=== PATIENT | female | born 1985 | race Caucasian/White ===

== ENCOUNTER → 2017-08-08 17:25 | Outpatient (REF) | payer BC, SELFPAY ==
[2017-08-08 18:11] LABS: Basophils # 0.1 K/mm3 (0-0.2); Basophils % 0.9 % (0.1-2.0); Eosinophils # 0.2 K/mm3 (0.0-0.4); Eosinophils % 3.2 % (0.1-12.0); Hematocrit 43.1 % (37.0-47.0); Hemoglobin 14.4 g/dL (12.2-16.2); Lymphocytes # 2.3 K/mm3 (0.7-4.5); Lymphocytes % 32.7 K/mm3 (10-50); Mean Corpuscular HGB Conc 33.5 g/dL (31.8-35.4); Mean Corpuscular Volume 95.4 fl (81-99); Mean Platelet Volume 8.1 fl (7.4-10.4); Monocytes # 0.3 K/mm3 (0.1-1.0); Monocytes % 3.6 % (1.7-9.3); Neutrophils # 4.2 K/mm3 (1.8-7.8); Neutrophils % 59.5 % (37.0-80.0); Platelet Count 268 K/mm3 (142-424); Red Blood Count 4.52 M/mm3 (4.20-5.40); Red Cell Distribution Width 12.3 % (11.5-17.5)
[2017-08-08 18:44] LABS: Alanine Aminotransferase 12 U/L (12-78); Albumin Level 3.7 gm/dL (3.4-5.0); Albumin/Globulin Ratio 1.1 (1.1-1.8); Alkaline Phosphatase 71 U/L (46-116); Anion Gap 12.6 mEq/L (5-15); Aspartate Amino Transferase 13 U/L (15-37); Bilirubin,Total 0.2 mg/dL (0.2-1.0); Blood Urea Nitrogen 10 mg/dL (7-18); Calcium 8.6 mg/dL (8.5-10.1); Carbon Dioxide 28 mmol/L (21.0-32.0); Chloride 104 mmol/L (98-107); Chol/HDL Ratio 5.2 (1-3.5); Cholesterol 193 mg/dL (140-200); Creatinine,Serum 0.86 mg/dL (0.55-1.02); Estimated Glomerular Filt Rate 76 ml/min (>60); GFR (African American) 92 ML/MIN (>60); Globulin 3.4 gm/dl (1.3-3.2); Glucose 112 mg/dL (74-106); HDL Cholesterol 37 mg/dL (29-89); LDL Cholesterol 139 mg/dL (0-130); Potassium 3.6 mmoL/L (3.5-5.1); Sodium 141 mmol/L (136-145); T4 (Thyroxine) 9.8 ug/dl (4.7-13.3); Thyroid Stimulating Hormone 1.56 uIU/ml (0.358-3.740); Total Protein,Serum 7.1 gm/dL (6.4-8.2); Triglycerides 85 mg/dL (30-200); VLDL Cholesterol 17 mg/dL (0-40)
[2017-08-10 06:42] LABS: Iron 64 ug/dL (27-159); UIBC 250 ug/dL (131-425)
[2017-08-10 08:11] LABS: Folate 11.4 ng/mL (>3.0)
[2017-08-11 06:10] LABS: Iron Saturation 20 % (15-55); Vitamin B12 418 pg/mL (232-1245); Vitamin D 25 Hydroxy 38.6 ng/mL (30.0-100.0)
== END ==
LOC: LAB 17:25
PROVIDERS: Visit Provider Physician Assistant
DX: R51 Headache (principal)
CPT/HCPCS: 80053; 80061; 82607; 82652; 82746; 83550; 84436; 84443; 85025

== ENCOUNTER → 2017-08-15 07:48 | Outpatient (CLI) | payer BC, SELFPAY ==
--- NOTE | 2017-08-15 07:51 | CT_ITS ---
CT head/brain wo con Ordering Physician: LAURA Dunlap Patient Age: 32 years: Female HISTORY: ITS.REASON: right sided h/a, f/h brain CA Headache for 3 weeks TECHNIQUE: Routine CT axial head CT without contrast. Brain and bone windows performed and reviewed. All CT scans at this facility used one or more dose reduction techniques , viz: automatic exposure control, ma/Kv adjustment per patient's size, (including targeted exam where dose matched to the indication; i.e. head); or iterative reconstruction technique COMPARISON :None FINDINGS The brain appears within normal limits with no acute intercranial findings. No hemorrhage. No mass lesion or mass effect.. No subdural collection . Posterior fossa appears satisfactory. Flor-white matter interfaces satisfactory. Ventricles and basal cisterns satisfactory. The skull intact. The visualized incompletely imaged paranasal sinuses are clear. Mastoid air cells middle air and IACs unremarkable IMPRESSION No acute intracranial findings. Brain within normal limits. Visualized paranasal sinuses unremarkable.
== END ==
LOC: RAD 07:49
PROVIDERS: Family Provider Physician Assistant; PCP Physician Assistant; Visit Provider Physician Assistant
DX: R51 Headache (principal)
CPT/HCPCS: 70450

== ENCOUNTER → 2017-12-22 10:51 | Outpatient (CLI) | payer BC, SELFPAY ==
--- NOTE | 2017-12-22 10:53 | US_ITS ---
US transvaginal HISTORY: Pelvic pain, evaluate for ovarian cyst, cystic lesion seen on CT ITS.REASON: US T/V- Pelvic pain Ovarian Cyst ruleout ORDERING PHYSICIAN: Aman Brownlee MD PATIENT AGE: 32 years Comparison: none FINDINGS: The uterus is 9 x 5 x 6 cm with a combined endometrial thickness of 7 mm. scar noted anteriorly. There is a small amount fluid within the endometrial canal which is not included in calculation of the overall thickness of the endometrium.. No uterine mass evident. The left ovary is 2.9 x 2.7 x 3 cm and contains multiple small follicles. Blood flow is present. The right ovary is 4 x 3 x 3 cm and contains multiple small follicles. There is trace fluid in the cul-de-sac. IMPRESSION: 1. Small amount fluid in the endometrial canal. No endometrial thickening. 2. Polycystic appearance of the ovaries with no dominant cyst evident. 3. Trace fluid in the cul-de-sac
== END ==
PROVIDERS: Family Provider Physician Assistant; PCP Physician Assistant; Visit Provider Nurse Practitioner Obstetrics & Gynecology
DX: R10.2 Pelvic and perineal pain (principal); N83.209 Unspecified ovarian cyst, unspecified side
CPT/HCPCS: 76830

== ENCOUNTER → 2018-06-30 09:21 | Outpatient (POV) | payer BC, SELFPAY | PROVIDERS: Visit Provider Dermatology | DX: Z00.00 Encounter for general adult medical examination without abnormal findings (principal) ==

== ENCOUNTER → 2018-09-21 10:25 | Outpatient (CLI) | payer BC, SELFPAY | PROVIDERS: Visit Provider Physician Assistant | DX: R10.2 Pelvic and perineal pain (principal) | CPT/HCPCS: 87086; 87210 ==

== ENCOUNTER → 2018-09-28 14:49 | Outpatient (CLI) | payer BC, SELFPAY ==
[2018-09-28 16:40] VITALS: BMI 29.2
== END ==
PROVIDERS: PCP Physician Assistant; Visit Provider Physician Assistant
DX: Z71.3 Dietary counseling and surveillance (principal); E66.3 Overweight
CPT/HCPCS: 97802

== ENCOUNTER → 2019-12-22 16:18 | Outpatient (CLI) | payer BC, SELFPAY ==
[2019-12-22 16:50] LABS: Basophils # 0.1 K/mm3 (0-0.2); Basophils % 0.7 % (0.1-2.0); Eosinophils # 0.2 K/mm3 (0.0-0.4); Eosinophils % 2.3 % (0.1-12.0); Hematocrit 41.9 % (37.0-47.0); Hemoglobin 14.6 g/dL (12.2-16.2); Lymphocytes # 2.2 K/mm3 (0.7-4.5); Lymphocytes % 27.4 % (10-50); Mean Corpuscular HGB Conc 34.8 g/dL (31.8-35.4); Mean Corpuscular Hemoglobin 33.4 pg (27.0-31.2); Mean Platelet Volume 7.9 fl (7.4-10.4); Monocytes # 0.5 K/mm3 (0.1-1.0); Monocytes % 5.7 % (1.7-9.3); Neutrophils # 5.1 K/mm3 (1.8-7.8); Neutrophils % 63.9 % (37.0-80.0); Platelet Count 278 K/mm3 (142-424); Red Blood Count 4.36 M/mm3 (4.20-5.40); Red Cell Distribution Width 13.1 % (11.5-17.5)
[2019-12-22 17:01] LABS: Urine Pregnancy, HCG Qual. Negative (Negative)
[2019-12-22 17:10] LABS: Barbiturates Screen,Urine Negative ng/ml (<200)
[2019-12-22 17:11] LABS: Amphetamine/Metha Screen,Urine Negative ng/ml (<1000); Benzodiazepines Screen,Urine Negative ng/ml (<200)
[2019-12-22 17:12] LABS: Cocaine Screen,Urine Negative ng/ml (<300)
[2019-12-22 17:13] LABS: Cannabinoid Screen,Urine Negative ng/ml (<50); Methadone Screen,Urine Negative ng/ml (<300)
[2019-12-22 17:14] LABS: Opiate Screen,Urine Negative ng/ml (<300); Phencyclidine Screen,Urine Negative ng/ml (<25)
[2019-12-22 18:04] LABS: Chloride 104 mmol/L (98-107); Potassium 4.1 mmoL/L (3.5-5.1); Sodium 141 mmol/L (136-145)
[2019-12-22 18:06] LABS: Alanine Aminotransferase 14 U/L (12-78); Aspartate Amino Transferase 21 U/L (14-36); Blood Urea Nitrogen 10 mg/dl (7-17); Estimated Glomerular Filt Rate 71 ml/min (>60); GFR (African American) 86 ML/MIN (>60)
[2019-12-22 18:07] LABS: Albumin Level 4.4 g/dl (3.5-5.0); Albumin/Globulin Ratio 1.6 (1.1-1.8); Alkaline Phosphatase 84 U/L (38-126); Anion Gap 13.1 mEq/L (5-15); Bilirubin,Total 0.3 mg/dl (0.2-1.3); Calcium 9.5 mg/dl (8.4-10.2); Carbon Dioxide 28 mmol/L (22.0-30.0); Globulin 2.7 g/dL (1.3-3.2); Glucose 98 mg/dl (74-100); Total Protein,Serum 7.1 g/dl (6.3-8.2)
[2019-12-22 18:30] LABS: Coronavirus 19 IgG Antibody Negative (Negative); Coronavirus 19 IgM Antibody Negative (Negative)
== END ==
PROVIDERS: Visit Provider Obstetrics & Gynecology
DX: Z01.89 Encounter for other specified special examinations (principal); N92.0 Excessive and frequent menstruation with regular cycle; N94.6 Dysmenorrhea, unspecified
CPT/HCPCS: 36415; 80053; 80305; 81025; 85025; 86328

== ENCOUNTER 2019-12-24 06:55 | Day surgery (SDC) | payer BC, SELFPAY ==
[2019-12-21 17:36] VITALS: BMI 26.5
[2019-12-24] VITALS (10 sets, daily range): BP systolic 90–117; BP diastolic 62–76; PULSE 80–101; RESP 12–18; TEMP 36.4–36.8; O2SAT 95–99
--- NOTE | 2019-12-24 10:36 | HMH.ANESCL ---
[facility] Anesthesia Checklist - Structural Data Admitted From: Home Planned Operative Procedure/s: d/c hyst tseringasure Consent for Planned Operative Procedure(s) Verified: Yes - Additional verifications Anesthesia Reactions: No Hx Blood Transfusions: No Blood Transfusion Reaction: No - Airway Assessment C-Spine Mobility Assessed: Yes TMJ Mobility Assessed: Yes Dentition: Good Dentition - Neurological Assessment Level of Consciousness: Awake, Alert, Appropriate - Anesthesia Plan Anesthesia Risk discussed: Yes Anesthesia Plan: Patient unable to respond/answer ASA Class: II Anesthesia Type: General [facility] History I have reviewed the patient's past medical history: Yes Medical History: Denies:: Cancer, Diabetes Mellitus Type 1, Diabetes Mellitus Type 2, MRSA, Seizures *Have you ever received a pneumonia vaccine?: No *Have you received a flu vaccine this season?: Yes Other Medical History: Denies: Blood Transfusion Reaction Anesthesia experience/problems:: none Other Surgeries: Yes: , Tubal Ligation Amputation: No Fractures: No - *Social History Last grade of school completed: High school graduate Smoking Status: Current every day smoker Tobacco Type: cigarettes, e-cigarettes # Packs/Day (cigarettes): 1 Alcohol Intake: never Substance Use Type: denies use *Occupational Status:: employed *Travel in the last 8 weeks: None Family Hx:: Asthma, Stroke, Cancer, Diabetes, Hypertension, Hyperlipidemia, Thyroid Disorder, Coronary Artery Disease 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
--- NOTE | 2019-12-24 10:36 | HMH.ANESI ---
[facility] Anesthesia Record Part I Intake, IV Amount: 800 Estimated blood loss (mL): 0 Urine output (mL): 0 Blood Pressure: 110/74 SaO2: 99 Pulse Rate: 96 Respiratory Rate: 12 Temperature: 97.5 F Patient is:: Awake, Stable Stable to PACU at:: 10:35
--- NOTE | 2019-12-24 11:37 | P.PN_ITS ---
[facility] Anesthesia Record Part II Discharge Time: 10:55 Destination: Surgical Day Care (OP Surgery) PACU nurse assessment reviewed?: Yes Patient Condition:: Good Anesthesia Complications:: None Swallowing reflex intact?: Yes Cyanosis?: No Blood Pressure: 102/70 Pulse Rate: 86 Temperature: 97.6 F Mental Status: Alert & Oriented Pain level:: 0 Nausea and/or vomitting:: None Intake, IV Amount: 0
--- NOTE | 2019-12-24 11:51 | P.OP_ITS ---
Date of procedure: 12/24/19 Pre-op Diagnosis:: Menorrhagia, Dysfunctional uterine bleeding, severe dysmenorrhea Post-op Diagnosis:: same Procedure performed:: D&C Hysteroscopy Novasure Endometrial Ablation Surgeon:: Maria G Barber MD INSTRUCTION LIBRARIAN:: Mitchel Bui Anesthesia: GETA Estimated blood loss (mL): 5 Operative findings:: grossly normal uterine cavity; no polyps or fibroids visualized Operative note:: The patient was taken to the operating room and general anesthesia was administered. She was prepped/draped in lithotomy position. The anterior lip of the cervix was grasped with a single tooth tenaculum and the cervix was dilated with Diallo dilators of serially increasing size until the external os was able to accomodate the hysteroscope. The hysteroscope was advanced through the cervix and into the uterine cavity, which was distended with LR. Once the uterus was sufficiently distended, the cavity was evaluated and revealed no abnormalities, polyps or fibroids. Sharp curettage was performed and the specimen sent for pathology. The uterine cavity sounded to a length of 5cm and a width of 4.3cm. After a successful cavity assessment, the device was deployed and the endometrial ablation was completed in 76seconds. Once the device had turned off, the Novasure was removed from the uterus and the hysteroscope was reinserted into the uterine cavity. The cavity appeared diffusely cauterized. The hysteroscope was removed from the uterus and all instruments removed from the vagina. The tenaculum site was hemostatic. All sponge/lap/needle/instrument counts correct x2. Total EBL: 5cc. The patient was taken out of lithotomy position, extubated and taken to the PACU in stable condition. Condition: stable Disposition: PACU Specimens:: endometrial curettings Complications:: none
== END 2019-12-24 11:46 | disposition home or self-care (01) ==
LOC: OR 06:58
PROVIDERS: PCP Emergency Medicine; Visit Provider Obstetrics & Gynecology
PROC: (CPT 58563; principal; 2019-12-24 08:30)
DX: N92.0 Excessive and frequent menstruation with regular cycle (principal); N94.6 Dysmenorrhea, unspecified; Z98.51 Tubal ligation status; Z72.0 Tobacco use
CPT/HCPCS: 58563; 96374; J2405

== ENCOUNTER → 2020-05-10 10:52 | Outpatient (CLI) | payer BC, SELFPAY | PROVIDERS: Visit Provider Obstetrics & Gynecology | DX: R10.2 Pelvic and perineal pain (principal) | CPT/HCPCS: 87210 ==

== ENCOUNTER → 2020-05-10 11:19 | Outpatient (CLI) | payer BC, SELFPAY ==
[2020-05-14 01:05] LABS: Neisseria gonorrhoeae, NAA Negative (Negative)
== END ==
LOC: LAB 11:19 → LAB.DROPOF 05-11 07:46
PROVIDERS: Visit Provider Obstetrics & Gynecology
DX: N89.8 Other specified noninflammatory disorders of vagina (principal)
CPT/HCPCS: 87210; 87491; 87591

== ENCOUNTER → 2020-05-15 16:47 | Outpatient (CLI) | payer BC, SELFPAY | PROVIDERS: Visit Provider Obstetrics & Gynecology | DX: R10.2 Pelvic and perineal pain (principal) | CPT/HCPCS: 87086 ==

== ENCOUNTER → 2020-05-17 13:24 | Outpatient (CLI) | payer BC, SELFPAY ==
--- NOTE | 2020-05-17 13:26 | US_ITS ---
PROCEDURE: US TRANSVAGINAL CLINICAL INDICATION: US T/V- pelvic pain COMPARISON: US TRANVAG US transvaginal from 12/22/2017 FINDINGS: UTERUS: 10cm x 6cmx 4cm with a combined endometrial thickness of 13 mm LEFT OVARY: [id number] with a volume of 21.5ml. There is a 2 cm left ovarian cyst RIGHT OVARY: [id number] with a volume of 12.7ml.. Debris-filled right ovarian cyst noted at 1.6 cm No cul-de-sac fluid IMPRESSION: 1. Mildly thickened endometrium at 13 mm 2. Debris-filled right ovarian cyst and simple appearing left ovarian cyst Dictated by: Cayden Cote MD 05/17/2020 19:06 Cayden Cote MD in OV 05/17/2020 19:06
== END ==
LOC: RAD 13:24
PROVIDERS: PCP Emergency Medicine; Visit Provider Obstetrics & Gynecology
DX: R10.2 Pelvic and perineal pain (principal)
CPT/HCPCS: 76830

== ENCOUNTER → 2020-08-31 10:34 | Outpatient (CLI) | payer BC, SELFPAY ==
[2020-08-31 11:45] LABS: Basophils # 0.1 K/mm3 (0-0.2); Basophils % 0.8 % (0.1-2.0); Eosinophils # 0.2 K/mm3 (0.0-0.4); Eosinophils % 2.6 % (0.1-12.0); Hematocrit 40.5 % (37.0-47.0); Hemoglobin 13.7 g/dL (12.2-16.2); Lymphocytes % 28.1 % (10-50); Mean Corpuscular HGB Conc 33.8 g/dL (31.8-35.4); Mean Corpuscular Hemoglobin 32.1 pg (27.0-31.2); Mean Corpuscular Volume 95.1 fl (81-99); Mean Platelet Volume 7.9 fl (7.4-10.4); Monocytes # 0.3 K/mm3 (0.1-1.0); Monocytes % 4.2 % (1.7-9.3); Neutrophils # 4.6 K/mm3 (1.8-7.8); Neutrophils % 64.3 % (37.0-80.0); Platelet Count 291 K/mm3 (142-424); Red Blood Count 4.26 M/mm3 (4.20-5.40); White Blood Count 7.2 K/mm3 (4.8-10.8)
[2020-08-31 11:56] LABS: Chloride 104 mmol/L (98-107); Sodium 139 mmol/L (136-145)
[2020-08-31 11:57] LABS: Potassium 4.4 mmoL/L (3.5-5.1)
[2020-08-31 11:59] LABS: Alanine Aminotransferase 11 U/L (12-78); Albumin Level 4.4 g/dl (3.5-5.0); Albumin/Globulin Ratio 1.6 (1.1-1.8); Alkaline Phosphatase 96 U/L (38-126); Anion Gap 12.4 mEq/L (5-15); Aspartate Amino Transferase 22 U/L (14-36); Bilirubin,Total 0.4 mg/dl (0.2-1.3); Blood Urea Nitrogen 6 mg/dl (7-17); Calcium 8.8 mg/dl (8.4-10.2); Carbon Dioxide 27 mmol/L (22.0-30.0); Cholesterol 207 mg/dl (140-200); Estimated Glomerular Filt Rate 81 ml/min (>60); GFR (African American) 98 ML/MIN (>60); Globulin 2.8 g/dL (1.3-3.2); Glucose 92 mg/dl (74-100); Total Protein,Serum 7.2 g/dl (6.3-8.2); Triglycerides 85 mg/dl (30-150); VLDL Cholesterol 17 mg/dL (0-40)
[2020-08-31 12:00] LABS: Chol/HDL Ratio 4.7 (1-3.5); HDL Cholesterol 44 mg/dl (40-60)
[2020-08-31 12:05] LABS: C-Reactive Protein 6.7 mg/L (0-4)
[2020-08-31 12:10] LABS: Direct LDL Cholesterol 136.41 mg/dL (100-129)
[2020-08-31 12:30] LABS: Thyroid Stimulating Hormone 1.23 uIU/mL (0.465-4.68)
[2020-08-31 12:37] LABS: Erythrocyte Sedimentation Rate 39 mm/hr (0-20)
[2020-08-31 12:44] LABS: 25-OH Vitamin D, Total 52.5 ng/mL (30-100)
[2020-08-31 19:33] LABS: Free T4 (Free Thyroxine) 1.09 ng/dl (0.78-2.19)
== END ==
PROVIDERS: PCP Physician Assistant; Visit Provider Physician Assistant
DX: R07.89 Other chest pain (principal); R42 Dizziness and giddiness; I95.9 Hypotension, unspecified; N39.0 Urinary tract infection, site not specified
CPT/HCPCS: 36415; 80053; 80061; 82306; 84439; 84443; 85025; 85651; 86140; 87086; 87088; 87186; 93225; 93226

== ENCOUNTER → 2020-09-08 11:46 | Outpatient (CLI) | payer BC, SELFPAY ==
[2020-09-08 12:15] LABS: Urine Pregnancy, HCG Qual. Negative (Negative)
== END ==
PROVIDERS: Visit Provider Urology
DX: Z01.812 Encounter for preprocedural laboratory examination (principal); Z20.822 Contact with and (suspected) exposure to COVID-19; N30.10 Interstitial cystitis (chronic) without hematuria; N30.90 Cystitis, unspecified without hematuria
CPT/HCPCS: 81025; U0003

== ENCOUNTER 2020-09-11 07:20 | Day surgery (SDC) | payer BC, SELFPAY ==
[2020-09-06 14:02] VITALS: BMI 27.8
[2020-09-11] VITALS (7 sets, daily range): BP systolic 99–125; BP diastolic 60–89; PULSE 72–89; RESP 12–18; TEMP 36.2–36.6; O2SAT 97–100
--- NOTE | 2020-09-11 07:49 | HMH.ANESCL ---
[facility] Anesthesia Checklist - Patient Identification Patient Identification: Arm Band - Structural Data Admitted From: Home Planned Operative Procedure/s: Cystoscopy - NPO Status Verified Time NPO: 00:00 - Chart Verification Results Verified: ECG (NSR, biatrial enlargement), HCG (Negative) - Additional verifications Anesthesia Reactions: Yes (nasuea / vomiting) Hx Blood Transfusions: No Blood Transfusion Reaction: Yes - Airway Assessment C-Spine Mobility Assessed: Yes TMJ Mobility Assessed: Yes Dentition: Good Dentition - Neurological Assessment Level of Consciousness: Awake Hx Seizures: No - Anesthesia Plan Anesthesia Risk discussed: Yes Anesthesia Plan: Verified ASA Class: III Anesthesia Type: General [facility] History I have reviewed the patient's past medical history: Yes Medical History: Reports:: Anxiety, Depression, Renal Disease (Interstitioal cystitis), Urinary Tract Infection Denies:: Cancer, Diabetes Mellitus Type 1, Diabetes Mellitus Type 2, Internal Pacemaker, MRSA, Seizures *Have you ever received a pneumonia vaccine?: No *Have you received a flu vaccine this season?: No Other Medical History: Reports: Blood Transfusion Reaction, Other (CP/dizziness/Hypotension) Anesthesia experience/problems:: N/V Laterality Cases: Bilateral: Tonsillectomy Other Surgeries: Yes: No Previous Surgery, Cholecystectomy, , Tubal Ligation. 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
--- NOTE | 2020-09-11 16:02 | P.OP_ITS ---
Date of procedure: 09/11/20 Pre-op Diagnosis:: Bladder pain and dysuria Post-op Diagnosis:: Findings of interstitial cystitis Procedure performed:: Cystoscopy with hydrodistention Surgeon:: Donovan Lockwood MD WOMEN'S GARMENT FITTER:: Other (Urban) Anesthesia: MAC Estimated blood loss (mL): 0 Clinical Note:: Patient is a 35-year-old white female with persistent bladder pain and dysuria who presents today for cystoscopic evaluation. She has responded to heparin installations. She states her flank pain has been worse since she is unable to have a distention the last 2 weeks. She did have a urinary tract infection about 2 weeks ago and has been treated for that. Operative findings:: Bladder showed normal bladder capacity but did have changes of interstitial cystitis with petechial hemorrhages after distention. Operative note:: Patient taken to the operating room after informed consent was obtained. She wa s placed on the operating table in the supine position antibiotics and general anesthesia administered. Preoperative antibiotics were administered. He was then placed into the dorsal lithotomy position prepped draped in the standard surgical fashion. A 22 Bulgarian cystoscope passed into the urethra meatus and into the bladder without difficulty. The bladder was examined in a systematic fashion and there is no evidence of mucosal abnormalities, stones, diverticula or trabeculation. The ureteral orifices in their normal anatomic position with clear efflux of urine from each. With the remainder water bag at the appropriate height of the patient's abdomen water was allowed to fill the bladder under gravity. After resistance was noted at the water bag the water was stopped bladder was emptied. 900 cc in the bladder. Looking back into the bladder there was some gross hematuria noted and petechial hemorrhages along the base of the bladder. The bladder was distended once again and 900 cc again obtained. Looking back into the bladder there was no increase in the amount or location of the petechial hemorrhages. The bladder was distended a third time again 900 cc obtained. The bladder again emptied no change noted in the bladder Urojet placed into the urethra. Patient tolerated procedure well discharged to the recovery room. I am going to start her on Elmiron twice daily 100 mg. I discussed the findings with her Boyfriend and we discussed that her bladder capacity is normal but she does have some changes consistent with interstitial cystitis so we will see if she can obtain any improvement with the Elmiron. Condition: stable Disposition: PACU Specimens:: None Complications:: None
== END 2020-09-11 11:07 | disposition home or self-care (01) ==
LOC: OR 07:21
PROVIDERS: PCP Physician Assistant; Visit Provider Urology
PROC: 0TJB8ZZ Inspection of Bladder, Via Natural or Artificial Opening Endoscopic (ICD-10-PCS; CPT 52000; principal; 2020-09-11 09:00)
DX: R39.89 Other symptoms and signs involving the genitourinary system (principal); R30.0 Dysuria; Z79.899 Other long term (current) drug therapy; Z88.6 Allergy status to analgesic agent
CPT/HCPCS: 52000; 96374; C9290; J2405

== ENCOUNTER → 2020-09-27 18:00 | Outpatient (CLI) | payer BC, SELFPAY ==
--- NOTE | 2020-09-27 18:16 | XR_ITS ---
PROCEDURE INFORMATION: Exam: XR Chest Exam date and time: 09/27/2020 6:16 PM Age: 35 years old Clinical indication: Patient HX: Chest tightness. Smoker TECHNIQUE: Imaging protocol: XR of the chest. Views: 2 views. COMPARISON: [id number] CT abdomen pelvis w con 12/09/2017 6:56 PM FINDINGS: Lungs: Unremarkable. No consolidation. Pleural spaces: Unremarkable. No pleural effusion. No pneumothorax. Heart/Mediastinum: Unremarkable. No cardiomegaly. Bones/joints: Unremarkable. IMPRESSION: No acute findings.
== END ==
PROVIDERS: PCP Physician Assistant; Visit Provider Physician Assistant
DX: R07.89 Other chest pain (principal)
CPT/HCPCS: 71046

== ENCOUNTER → 2021-04-11 11:51 | Outpatient (CLI) | payer BC, SELFPAY | PROVIDERS: Visit Provider Nurse Practitioner | DX: U07.1 COVID-19 (principal) | CPT/HCPCS: C9803; U0003; U0005 ==

== ENCOUNTER 2023-03-07 16:38 | Emergency (ER) | payer BC, SELFPAY ==
[2023-03-07 17:20] VITALS: BP 120/70; PULSE 56; RESP 18; TEMP 37.1; O2SAT 97; BMI 34.5
[2023-03-07 17:20] LABS: UTC Influenza A Antigen Negative (Negative); UTC Influenza B Antigen Negative (Negative)
--- NOTE | 2023-03-07 17:32 | EXP.UTC ---
Discharge Plan Disposition Patient Disposition: Home, Self-Care Condition: Good Prescriptions Prescriptions: No Action Elmiron 100 mg capsule 100 mg PO BID Qty: 180 3RF (DME) Comfort EZ Pen [place] 33 gauge x 5/16 needle See Rx Instructions .Route Qty: 100 0RF Rx Instructions: As directed Saxenda 3 mg/0.5 mL (18 mg/3 mL) pen injector See Rx Instructions SQ .COMPLEX Qty: 15 2RF Rx Instructions: inject subcutaneously once daily: week 1 = 0.6 mg; week 2 = 1.2 mg; week 3 = 1.8 mg; week 4 = 2.4 mg; then 3 mg daily SQ amitriptyline 10 mg tablet 10 mg PO HS Qty: 90 3RF ondansetron 8 mg tablet,disintegrating 8 mg PO Q8H PRN (Reason: nausea and vomiting) Qty: 30 0RF vilazodone 20 mg tablet See Rx Instructions .ROUTE .COMPLEX Qty: 90 0RF Dose Instruction: TAKE 1 TABLET BY MOUTH ONCE DAILY WITH FOOD FOR DEPRESSION Rx Instructions: TAKE 1 TABLET BY MOUTH ONCE DAILY WITH FOOD FOR DEPRESSION amoxicillin 500 mg capsule 500 mg PO BID 10 Days Qty: 20 0RF Referrals Follow up/Referrals: Karol Viveros PA [Primary Care Provider] - See instructions Activity Restrictions/Add. Instructions Additional Instructions/Restrictions: *Monitor Temp, Over the counter Motrin or Tylenol as directed/as needed Tylenol every 4 hours and Motrin every 6 hours (as long as your family doctor has told you that you can take it) for fever or pain. and straight to ER if unable to lower temp less than 101.0 after medication given *Warm salt water gargles may help to soothe the throat *Throat Lozenges? *Warm fluids like tea with honey may help to soothe the throat? *Sleep elevated *Humidifier/Vaporizer Your throat swab was sent for culture. Those results are typically sent to your primary care. Be sure to follow up in 2-3 days with your family doctor/primary care physician if no improvement so they can review those result and treat if necessary. If you don?t have a primary care doctor, I recommend you get one but in the mean time, you will have to return to a walk in clinic Follow up IMMEDIATELY for new or worsening symptoms or no Noticeable improvement over the next 48-72 hours. 911 for difficulty breathing or swallowing You were tested for today for Upper Respiratory Panel with COVID19 your test result should be back in the next 24hours, you may Check your results on the [facility] My Health Portal if your COVID is positive you must quarantine for 5 days Clinical Impressions Clinical Impression: Viral syndrome Stand Alone Forms Stand Alone Forms: Work/School Release Instructions Patient Instructions: DI for Viral Syndrome, DI for Fever (Symptom) -- Adult Discharge ED Provider: Aziza Rosa [facility] [place] General Stated complaint: body aches, fever/chills, h/a, runny nose Mode of Arrival: Ambulatory Source of Information: Patient Limitations: No Limitations Time Seen by Provider: 03/07/23 17:33 Description of Symptoms (Recalled from Triage Doc. by RN): fever, chills, body aches, muscle stiffiness, VALENCIA, fatigue, and runny nose. HEENT Symptoms (Recalled from RN notes): Yes Resp Symptoms (Recalled from RN notes): No Skin Symptoms (Recalled from RN notes): No MS Symptoms (Recalled from RN notes): No Functional Status (Recalled from RN notes): n/a History of Present Illness Provider Complaint: Patient states that on Friday she woke up in the middle of the night having chills, body aches, fever and stuffy nose States that she felt better yesterday and this morning she felt ok and she went on to work and as the day went on she started again with body aches, fever, chills, head congestion, headache and fatigue states that she feels like she has the flu States that she took several home COVID test and they was negative but this evening when she was still not feeling well she came in to get checked States that she is currently on Amoxil started yesterday for bladder
[2023-03-07 17:47] LABS: Adenovirus,PCR Not Detected (NotDetected); Coronavirus NL63 Not Detected (NotDetected); Coronovirus HKU1,PCR Not Detected (NotDetected)
[2023-03-07 17:48] LABS: Coronavirus 229E Not Detected (NotDetected); Coronavirus OC43 Not Detected (NotDetected); Human Metapneumovirus Not Detected (NotDetected); Influenza A, PCR Not Detected (NotDetected); Influenza AH1, 2009 Not Detected (NotDetected); Influenza AH1, PCR Not Detected (NotDetected); Influenza AH3,PCR Not Detected (NotDetected); Influenza B, PCR Not Detected (NotDetected); Parainfluenza 1, PCR Not Detected (NotDetected); Parainfluenza 2, PCR Not Detected (NotDetected); Parainfluenza 3, PCR Not Detected (NotDetected); Parainfluenza 4, PCR Not Detected (NotDetected); Respiratory Syncytial Virus Not Detected (NotDetected); Rhinovirus/Enterovirus Not Detected (NotDetected)
[2023-03-07 17:59] LABS: UTC Strep Screen (Rapid) Negative (Negative)
[2023-03-07 18:18] VITALS: BP 120/70; PULSE 56; RESP 18; TEMP 37.1; O2SAT 97
[2023-03-07 19:29] LABS: Coronavirus 19, PCR Detected (NotDetected)
== END 2023-03-07 18:18 | disposition home or self-care (01) ==
PROVIDERS: Emergency Provider Nurse Practitioner; PCP Physician Assistant
DX: U07.1 COVID-19 (principal); R51.9 Headache, unspecified; R50.9 Fever, unspecified; R07.0 Pain in throat; R09.81 Nasal congestion; M79.18 Myalgia, other site; R53.83 Other fatigue; F17.210 Nicotine dependence, cigarettes, uncomplicated
CPT/HCPCS: 87632; 87635; 87804; 87880; 99203; 99212; G0463

== ENCOUNTER 2023-06-17 07:38 | Emergency (ER) | payer BC, SELFPAY ==
[2023-06-17 07:39] VITALS: BP 125/74; PULSE 96; RESP 15; TEMP 37.2; O2SAT 97; BMI 36.0
[2023-06-17 07:52] LABS: Microscopic, Urine URINE MICROSCOPIC (MICROSCOPIC)
[2023-06-17 07:55] LABS: Blood, Urine 2+ (Negative); Color,Urine YELLOW (Yellow); Glucose,Urine (UA) Negative (Negative); Ketones,Urine TRACE (Negative); Leukocyte Esterase,Urine Negative (Negative); Nitrate,Urine Negative (Negative); PH,Urine 5.5 (5.0-8.5); Protein,Urine Negative (Negative); Specific Gravity, Urine >= 1.030 (1.005-1.030); Urobilinogen,Urine 0.2 EU/dl (0.2)
[2023-06-17 08:00] VITALS: PULSE 105; O2SAT 95
--- NOTE | 2023-06-17 08:08 | PC.NURSE ---
DR CONDE AT BEDSIDE
[2023-06-17 08:10] LABS: Appearance,Urine Cloudy (Clear); Bilirubin,Urine 1+ (Negative)
--- NOTE | 2023-06-17 08:11 | HMH.EDGENADL ---
Discharge Plan Disposition Patient Disposition: Home, Self-Care Condition: Good Prescriptions Prescriptions: New prochlorperazine maleate [Compazine] 10 mg tablet 10 mg PO Q8H PRN (Reason: nausea and vomiting) 2 Days Qty: 12 0RF No Action (DME) Comfort EZ Pen [place] 33 gauge x 5/16 needle See Rx Instructions .Route Qty: 100 0RF Rx Instructions: As directed Zepbound 2.5 mg/0.5 mL pen injector 2.5 mg SQ WEEKLY 28 Days Qty: 2 0RF ondansetron 8 mg tablet,disintegrating 8 mg PO Q8H PRN (Reason: nausea and vomiting) 5 Days Qty: 10 0RF amitriptyline 10 mg tablet 10 mg PO HS Qty: 90 3RF [place] 100 mg capsule 100 mg PO BID Qty: 180 3RF vilazodone 20 mg tablet See Rx Instructions .ROUTE .COMPLEX Qty: 90 0RF Dose Instruction: TAKE 1 TABLET BY MOUTH ONCE DAILY WITH FOOD FOR DEPRESSION Rx Instructions: TAKE 1 TABLET BY MOUTH ONCE DAILY WITH FOOD FOR DEPRESSION Referrals Follow up/Referrals: Karol Viveros PA [Primary Care Provider] - See instructions Clinical Impressions Clinical Impression: Nausea vomiting and diarrhea Stand Alone Forms Stand Alone Forms: Work/School Release Instructions Patient Instructions: DI for Diarrhea and Traveler's Diarrhea -- Adult, DI for Vomiting -- Adult Discharge ED Provider: Tricia Can General Adult HPI General Chief complaint: Abdominal Pain Stated complaint: severe stomach pain, nausea Time Seen by Provider: 06/17/23 07:46 Mode of Arrival: Ambulatory Source of Information: Patient Limitations: No Limitations Description of Symptoms (Recalled from ER Triage Doc. by RN): pt presents to ED with severe abdominal pain. pt reports taking tirzepatide on friday, 2.5 mg injection. yesterday approx 1300 pt reports pain, nausea, diarrhea began. History of Present Illness HPI narrative: This patient is a 38-year-old female with history of interstitial cystitis, prior cholecystectomy, and tubal ligation presenting to the emergency department for evaluation with concern for abdominal pain, nausea, and diarrhea. Patient reports that on Friday, she took a tirzepatide injection for the first time for weight loss. Yesterday around 1 PM, she developed pain, nausea, and diarrhea. Diarrhea is nonbloody and nonmelanotic. She notes she has tried Zofran and Phenergan at home with no improvement. The pain is mostly generalized but is concentrated to her upper abdomen. No other concerns noted at this time Related Data Previous Rx's Medication Instructions Recorded pen needle, diabetic 33 gauge x #100 ea 09/16/22 5/16 (Comfort EZ Pen [place]) amitriptyline 10 mg tablet 10 mg PO HS #90 tabs 03/20/23 pentosan polysulfate sodium 100 mg 100 mg PO BID #180 caps 04/28/23 capsule (Elmiron) vilazodone 20 mg tablet See Rx Instructions .Route 05/08/23 .COMPLEX #90 tabs ondansetron 8 mg disintegrating 8 mg PO Q8H PRN nausea and 06/05/23 tablet vomiting 5 days #10 tabs tirzepatide (weight loss) 2.5 2.5 mg (0.5 mL) SQ WEEKLY 4 weeks 06/05/23 mg/0.5 mL subcutaneous pen #2 mL injector (Zepbound) prochlorperazine maleate 10 mg 10 mg PO Q8H PRN nausea and 06/17/23 tablet (Compazine) vomiting 48 hours #12 tabs Allergies Allergy/AdvReac Type Severity Reaction Status Date / Time codeine Allergy Unknown RASH & Verified 06/05/23 15:31 BREATHING PROBLEMS [facility] Disclaimer: The information contained in this section may have been updated after the patient was seen, as this information can be updated by other users. Medical History Interstitial cystitis Anxiety Depression Surgical History History of tubal ligation Social History Smoking Status: Current every day smoker tobacco type: cigarettes packs per day: 1 and e-cigarettes alcohol intake: current substance use type: denies use current occupational status: employed Travel in the last 8 weeks: None household members: family housing: house number of children: 4 current occupation: [employer] caffeine: Yes ROS Obtained: Yes All systems reviewed & no additional complaints except as documented Physical Exam General General appearance: alert and in no apparent distress Head Head exam: atraumatic and normocephalic Eye Eye exam: Present normal appearance, PERRL and EOMI ENT ENT exam: Present normal exam, normal oropharynx, mucous membranes moist and normal external ear exam Neck Neck exam: Present normal inspection, full ROM and trachea midline; Absent tenderness Chest Chest inspection: Present normal inspection and symmetric chest wall rise; Absent tenderness Respiratory Respiratory exam: Present normal lung sounds bilaterally; Absent respiratory distress, wheezes, stridor or accessory muscle use Cardiovascular Cardiovascular exam: Present regular rate and normal rhythm Abdominal Exam Abdominal exam: Present soft, tenderness (Mild generalized) and normal bowel sounds; Absent distention, guarding, rebound or rigidity Extremities Exam Extremities exam: Present normal inspection, full ROM and normal capillary refill; Absent tenderness or edema Back Exam Back exam: Present normal inspection and full ROM; Absent tenderness Neurological Exam Neurological exam: Present alert, oriented X3, CN II-XII intact and normal gait; Absent motor sensory deficit Psychiatric Psychiatric exam: Present normal affect and normal mood Skin Skin exam: Present warm and dry Medical Decision Making Medical Records Medical records reviewed: Yes I reviewed the patient's medical records. Jasen Inquiry Pt receiving controlled substance: No Vital Signs: 06/17/23 07:39 06/17/23 08:00 06/17/23 08:21 Temperature 98.9 F Temperature Source Oral Pulse Rate 105 H 74 Pulse Rate [Left Radial] 96 H Respiratory Rate 15 Blood Pressure 115/74 Blood Pressure [Right Arm] 125/74 Blood Pressure Mean 89 Blood Pressure Mean [Right Arm] 91 Blood Pressure Source Blood Pressure Position 02 Sat by Pulse Oximetry 97 95 95 Oxygen Delivery Method Room Air 06/17/23 08:30 06/17/23 09:11 Temperature 98.9 F Temperature Source Pulse Rate 74 66 Pulse Rate [Left Radial] Respiratory Rate 18 Blood Pressure 110/74 108/61 L Blood Pressure [Right Arm] Blood Pressure Mean 82 Blood Pressure Mean [Right Arm] Blood Pressure Source Automatic Cuff Blood Pressure Position Sitting 02 Sat by Pulse Oximetry 95 Oxygen Delivery Method Room Air Lab Data Lab results reviewed: Yes I reviewed the patient's lab results. Lab Results 06/17/23 07:40: Urine Color Yellow, Urine Appearance Cloudy, Urine pH 5.5, Ur Specific [place] >= 1.030, Urine Protein Negative, Urine Glucose (UA) Negative, Urine Ketones Trace, Urine Blood 2+, Urine Nitrate Negative, Urine Bilirubin 1+ A, Urine Urobilinogen 0.2, Ur Leukocyte Esterase Negative, Urine RBC Occasional, Urine WBC Occasional, Ur Squamous Epith Cells 20-50, Calcium Oxalate Crystal 1+, Amorphous Sediment 1+, Urine Bacteria 1+, Urine Mucus Trace 06/17/23 07:50: WBC 9.8, RBC 4.65, Hgb 15.2, Hct 46.7, MCV 100.5 H, MCH 32.6 H, MCHC 32.4, RDW 13.3, Plt Count 344, MPV 8.3, Neut % (Auto) 76.4, Lymph % (Auto) 16.5, [place] % (Auto) 4.5, Eos % (Auto) 2.0, Baso % (Auto) 0.6, Neut # (Auto) 7.5, Lymph # (Auto) 1.6, [place] # (Auto) 0.4, Eos # (Auto) 0.2, Baso # (Auto) 0.1, Sodium 137, Potassium 4.2, Chloride 104, Carbon Dioxide 25, Anion Gap 12.2, BUN 13, Creatinine 0.90, Estimated Creat Clear 118, Estimated GFR 70, Est GFR ( Amer) 84, Glucose 109 H, Calcium 10.2, Total Bilirubin 0.6, AST 28, ALT 20, Alkaline Phosphatase 109, Total Protein 8.0, Albumin 4.6, Globulin 3.4 H, Albumin/Globulin Ratio 1.4, Lipase 73 06/17/23 07:50 06/17/23 07:50 Orders (Tests/Meds): ED MEDICATIONS Discontinued Medications Generic Name Dose Route Start Last Admin Trade Name Freq PRN Reason Stop Dose Admin Acetaminophen 1,000 mg 06/17/23 07:49 06/17/23 08:22 Acetaminophen 500mg Tab PO 06/17/23 07:50 1,000 mg ONCE ONE Administration Lactated Ringer's 1,000 mls @ 999 mls/hr 06/17/23 07:49 06/17/23 08:17 Lactated Ringer's 1000 Ml Bag IV 06/17/23 08:49 999 mls/hr .Q1H1M ONE Administration Lactated Ringer's 1,000 mls @ 999 mls/hr 06/17/23 08:54 Lactated Ringer's 1000 Ml Bag IV 06/17/23 09:54 .Q1H1M ONE Ketorolac Tromethamine 15 mg 06/17/23 07:49 06/17/23 08:22 Ketorolac 30mg/Ml Vial IV 06/17/23 07:50 15 mg ONCE ONE Administration Ondansetron HCl 4 mg 06/17/23 07:49 06/17/23 08:22 Ondansetron 4mg/2ml Vial IV 06/17/23 07:50 4 mg ONCE ONE Administration Prochlorperazine Edisylate 10 mg 06/17/23 08:47 06/17/23 08:53 Prochlorperazine 10mg/2ml Vial IV 06/17/23 08:48 10 mg ONCE ONE Administration ORDERS Category Date Time Status Complete Blood Count Auto Diff Stat Lab 06/17/23 07:50 Completed Comprehensive Metabolic Panel Stat Lab 06/17/23 07:50 Completed Lipase Stat Lab 06/17/23 07:50 Completed Urinalysis and Microscopic Stat Lab 06/17/23 07:40 Completed Medical Decision Narrative: In summary, this patient is a 38-year-old female presenting to the Emergency Department for evaluation of roddy pain, nausea, and diarrhea after starting tirzepatide injection. Differential diagnoses considered include but are not limited to medication adverse reaction, gastroenteritis, colitis, infectious enteritis, pancreatitis, dehydration. Ruling out the most morbid conditions drove assessment. On exam, the patient is well-appearing. She has mild generalized abdominal tenderness but otherwise abdominal exam is benign. Vitals are reassuring on cardiac telemetry. Workup included CBC, CMP, lipase, urinalysis, and diarrhea panel. She was given a bolus of IV fluids as well as IV Toradol, oral Tylenol, and IV Zofran for symptomatic improvement. On reassessment, patient is resting comfortably with benign abdominal exam and reassuring vital signs. She has mild provide stool sample, but urine is not concerning for infection. Labs are reassuring with no significant leukocytosis or electrolyte derangements. I feel this is likely infectious gastroenteritis versus medication adverse reaction. She did not have good improvement after Zofran, but she did get improvement after Compazine IV. Patient advised that she needs to leave at this time because she got called that her child is sick at school. Given this, she was discharged home with prescription for Compazine, instructions for supportive management, and strict return precautions. Patient was discharged after all questions were answered. Critical Care Critical Care Time Critical Care Time: No
[2023-06-17] MEDS: LACTATED RINGERS 1000ML 1,000 ML 999 ML IV (08:17)
[2023-06-17 08:21] VITALS: BP 115/74; PULSE 74; O2SAT 95
[2023-06-17] MEDS: ACETAMINOPHEN 500MG TAB 1000 MG PO (08:22)
[2023-06-17] MEDS: ONDANSETRON 4MG/2ML VIAL 4 MG IV (08:22)
[2023-06-17] MEDS: KETOROLAC 30MG/ML VIAL 15 MG IV (08:22)
[2023-06-17 08:24] LABS: Basophils # 0.1 K/mm3 (0-0.2); Basophils % 0.6 % (0.1-2.0); Eosinophils # 0.2 K/mm3 (0.0-0.4); Hematocrit 46.7 % (37.0-47.0); Hemoglobin 15.2 g/dL (12.2-16.2); Lymphocytes # 1.6 K/mm3 (0.7-4.5); Lymphocytes % 16.5 % (10-50); Mean Corpuscular HGB Conc 32.4 g/dL (31.8-35.4); Mean Corpuscular Hemoglobin 32.6 pg (27.0-31.2); Mean Corpuscular Volume 100.5 fl (81-99); Mean Platelet Volume 8.3 fl (7.4-10.4); Monocytes # 0.4 K/mm3 (0.1-1.0); Monocytes % 4.5 % (1.7-9.3); Neutrophils # 7.5 K/mm3 (1.8-7.8); Neutrophils % 76.4 % (37.0-80.0); Platelet Count 344 K/mm3 (142-424); Red Blood Count 4.65 M/mm3 (4.20-5.40); Red Cell Distribution Width 13.3 % (11.5-17.5); White Blood Count 9.8 K/mm3 (4.8-10.8)
[2023-06-17 08:30] VITALS: BP 110/74; PULSE 74; O2SAT 95
[2023-06-17 08:32] LABS: Alanine Aminotransferase 20 U/L (12-78); Albumin Level 4.6 g/dl (3.5-5.0); Albumin/Globulin Ratio 1.4 (1.1-1.8); Alkaline Phosphatase 109 U/L (38-126); Anion Gap 12.2 mEq/L (5-15); Aspartate Amino Transferase 28 U/L (14-36); Bilirubin,Total 0.6 mg/dl (0.2-1.3); Blood Urea Nitrogen 13 mg/dl (7-17); Calcium 10.2 mg/dl (8.4-10.2); Carbon Dioxide 25 mmol/L (22.0-30.0); Chloride 104 mmol/L (98-107); Creatinine Clearance Estimated 118 mL/min (50-200); Estimated Glomerular Filt Rate 70 ml/min (>60); GFR (African American) 84 ML/MIN (>60); Globulin 3.4 g/dL (1.3-3.2); Glucose 109 mg/dl (74-100); Lipase 73 U/L (23-300); Potassium 4.2 mmoL/L (3.5-5.1); Sodium 137 mmol/L (136-145)
[2023-06-17 08:50] LABS: Amorphous Sediment,Urine 1+ /lpf; Bacteria,Urine 1+ /lpf; Calcium Oxalate Crystals,Urine 1+ /lpf; Mucus,Urine Trace /lpf; RBC,Urine Occasional #/hpf (0-3); Squamous Epithelial Cell,Urine 20-50 #/hpf (0-5); WBC,Urine Occasional #/hpf (0-3)
[2023-06-17] MEDS: PROCHLORPERAZINE 10MG/2ML VIAL 10 MG IV (08:53)
[2023-06-17 09:11] VITALS: BP 108/61; PULSE 66; RESP 18; TEMP 37.2; O2SAT 99
== END 2023-06-17 09:17 | disposition home or self-care (01) ==
PROVIDERS: Emergency Provider Emergency Medicine; PCP Physician Assistant
DX: R10.10 Upper abdominal pain, unspecified (principal); R11.2 Nausea with vomiting, unspecified; R19.7 Diarrhea, unspecified; F17.210 Nicotine dependence, cigarettes, uncomplicated
CPT/HCPCS: 80053; 81001; 83690; 85025; 96361; 96374; 96375; 99284; J2405

== ENCOUNTER 2024-12-03 10:30 | Outpatient (CLI) | payer BC, SELFPAY | END 2024-12-03 23:59 | LOC: LAB.DROPOF 12-06 10:30 | PROVIDERS: PCP Nurse Practitioner Family; Visit Provider Obstetrics & Gynecology | DX: N94.89 Other specified conditions associated with female genital organs and menstrual cycle (principal); R39.9 Unspecified symptoms and signs involving the genitourinary system | CPT/HCPCS: 87086; 87491; 87529; 87591; 87661; 87798; 87801 ==